=== PATIENT | male | born 1960 | race Caucasian/White ===

== ENCOUNTER → 2016-05-18 | Day surgery (SDC) | payer BC ==
[~2016-05-18] VITALS: Ht 170.1 cm; Wt 108.9 kg
[~2016-05-18] MED LIST: AMOXICILLIN,AM875 MG PO; ASPI-COR81 M1 PO; BIAXIN500 MG PO; CIPRO500 MG PO; CLOPIDOGREL75 MG PO; COMBIVENT1 ARO IH; DELTASONE5 MG PO; DUONEB 3 MG/3 ML3 ML INH; METOPROLOL SR50 MG PO; MULTI VITAMINS1 TAB PO; NEBULIZER; PRAVASTATIN SOD40 MG PO; PREDNICOT20 MG PO; Synthroid,Levo50 MCG PO; TOPROL XL100 MG PO; TOPROL XL25 MG PO; VENTOLIN H0.09 MG/AC INH; VICODIN 500 MG-1 TAB PO; VITAMIN D3 PO
--- NOTE | ~2016-05-18 | PROC NOTE ---
[place], [place] PROCEDURE NOTE NAME: KARSTEN FORD V [facility] #: [id number] UNIT #: [id number] ROOM: DOCTOR: MENDOZA VELEZ MD BIRTHDATE: [birth year] DOS: 05/18/2016 PREOPERATIVE DIAGNOSIS: Screening examination. POSTOPERATIVE DIAGNOSIS: Sigmoid diverticulosis, colonic polyps x 2, internal hemorrhoids (grade 2). PROCEDURE: Colonoscopy with polypectomy x 2. ENDOSCOPIST: Mendoza Velez M.D. NEWSPAPER PHOTOGRAPHER: MS3. ANESTHESIA: MAC. INDICATIONS: This is a 56-year-old gentleman who is here for a screening examination. The procedure and its complications were explained to the patient in detail preoperatively. Complications that were discussed included, but were not limited to bleeding, missed lesions and colon perforation. He agreed to proceed. DESCRIPTION OF PROCEDURE: After identifying the patient, the patient was brought to the endoscopy suite and placed in the left lateral position. After IV sedation was administered by the anesthesia team, a timeout procedure was called. A digital rectal exam was performed, which was within normal limits. There was no blood on the examining finger, nor there were any masses that could be palpated. An adult colonoscope was now introduced into the anal canal and advanced sequentially into the rectum, sigmoid colon, descending colon, transverse colon, and ascending colon up to the cecum. There was found to be sigmoid diverticulosis, 2 polyps in the descending colon at 40 and 50 cm respectively from the anal verge, and internal hemorrhoids. Upon reaching the cecum, the scope was withdrawn. Total withdrawal time was approximately 7 minutes. There were no other lesions that could be identified. Upon reaching the 2 polyps, they were both biopsied with the help of a biopsy forceps and a specimen was sent for histopathological diagnosis. Upon withdrawal, the scope was retroflexed in the rectum and grade 2 internal hemorrhoids without any active bleeding was visualized. The scope was withdrawn and the patient was taken to the recovery room in a stable fashion. There were no complications. Dr. Mendoza Velez, the attending endoscopist, was present throughout the operating case. Based on these findings, the patient is recommended another colonoscopy in approximately 3 years depending on the biopsy results. I also counseled his in the recovery room about diverticular diet. I will see the patient in 2 weeks and discuss these results and the need for another colonoscopy with him as an outpatient. [place], [place] PROCEDURE NOTE NAME: KARSTEN FORD V UNIT #: [id number] ROOM: DOCTOR: MENDOZA VELEZ MD BIRTHDATE: [birth year] Mendoza Velez MD CM:PROCNOTE:PROCEDURE NOTE [id number] MENDOZA VELEZ MD
[2016-05-18 07:20] VITALS: BP 135/71
[2016-05-18 08:43] VITALS: BP 168/92
[2016-05-18 08:58] VITALS: BP 150/113
[2016-05-18 09:13] VITALS: BP 136/64
[2016-05-18 09:20] VITALS: BP 141/67
== END | disposition home or self-care (01) ==
LOC: SDC 05-16 09:30
DX: Z12.11 Encounter for screening for malignant neoplasm of colon (principal); D12.5 Benign neoplasm of sigmoid colon; K63.5 Polyp of colon; K57.30 Diverticulosis of large intestine without perforation or abscess without bleeding; K64.8 Other hemorrhoids; I10 Essential (primary) hypertension; J44.9 Chronic obstructive pulmonary disease, unspecified; E78.00 Pure hypercholesterolemia, unspecified; I25.10 Atherosclerotic heart disease of native coronary artery without angina pectoris; F17.210 Nicotine dependence, cigarettes, uncomplicated; Z82.3 Family history of stroke

== ENCOUNTER → 2016-06-14 | Outpatient (CLI) | payer BC | END | disposition home or self-care (01) | LOC: RAD 13:47 | DX: M19.012 Primary osteoarthritis, left shoulder (principal) ==

== ENCOUNTER 2016-09-26 21:51 | Inpatient (IN) | payer OTHER ==
[~2016-09-26] VITALS: Ht 175.2 cm; Wt 95.6 kg
--- NOTE | ~2016-09-26 | CON ---
[place], [place] REPORT OF CONSULTATION [id number] UN[facility] #: [id number] ROOM: 424 DOCTOR: PARVIZ MILLERYONY S BIRTHDATE: [birth year] DOS: 09/28/2016 REASON FOR CONSULTATION: Acute kidney injury at the request of Dr. Pritchard. He has perhaps some mild CKD past history with a baseline creatinine in 2009 to 2013 of around 1.2 to 1.4. He has had prior acute kidney injury with a creatinine of 2.9 in February 2009. However, on this admission, he came in with a creatinine of 4.3. It is actually improving and his creatinine is down to 1.81 this morning. So far he has been given IV volume expansion. He had a past urinalysis in 2009, but nothing since then. 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 He was consulted by Dr. Pritchard to see GI for presentation of significant bloody diarrhea. He has not reported any further bloody diarrhea since having a colonoscopy done. He had a prep done and he underwent colonoscopy earlier today; there was a polypectomy performed and findings of ischemic colitis were noted. His hemoglobin when he presented was 14.3, it dropped to 11.9 today, but he has been given volume. He has not received any blood transfusion or blood products. He is not chronically anticoagulated. He takes no NSAIDs at home, does take Plavix and aspirin. No other overt nephrotoxic medications reported. Takes metoprolol for blood pressure and was on lisinopril, hydrochlorothiazide at one point as well, it is not clear if he was taking this currently. He underwent an abdominal pelvic CT, which showed no evidence of any abnormalities with the kidneys, though on enhanced images, there was bowel wall thickening consistent with the colitis mentioned in the colonoscopy report. He is feeling better right now. He continues on IV fluids. His blood pressures are well controlled, but he continuing to have diarrhea episodes and he is on a clear liquid diet without nausea or vomiting. Rest of the review of systems is negative. PAST MEDICAL HISTORY: As above as well as history of CAD, past COPD and past smoking, hypertension. FAMILY HISTORY: Negative for renal failure. SOCIAL HISTORY: He is , denies any toxic abuse. 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 He is doing a lot of sweating. PHYSICAL EXAMINATION: VITAL SIGNS: 98.0, 75, 20, 129/65, 100% on room air. GENERAL: He is awake, alert, and oriented, no acute distress, pleasant mood and affect. Speech is clear and cogent. HEENT: Extraocular muscles are intact. Sclerae are anicteric. Oropharynx is clear. Mucous membranes are moist. NECK: No JVD, no lymphadenopathy. LUNGS: Clear bilaterally without audible rales, rhonchi or wheeze. CARDIOVASCULAR: Regular rate. No audible rub. No palpable lift or heave. ABDOMEN: Soft, nontender, nondistended. No rebound, no guarding. No CVA tenderness. SKIN: Without diffuse rashes or breakdowns or nodules. EXTREMITIES: Without cyanosis, clubbing or significant edema. [place], [place] REPORT OF CONSULTATION NAME: KARSTEN FORD V UNIT #: [id number] ROOM: 424 DOCTOR: YONY JJ MD BIRTHDATE: [birth year] BACK: Without point tenderness. NEUROLOGIC: Gross motor functions and sensation is intact. LABORATORIES AND DIAGNOSTICS: White blood cell count 7.0, hemoglobin 11.9, platelets 173, normal differential. Sodium 139, potassium 4.2, chloride 110, bicarb 22, BUN 22, creatinine 1.81 down from 4.3 on admission, glucose 110, calcium is 7.6, phosphorus 2.1, albumin 3.4. CT and colonoscopy reports reviewed and mentioned above. ASSESSMENT AND PLAN: Acute kidney injury. This is likely on a baseline of chronic kidney disease stage 3 with baseline between 1.2 and 1.4, may be hypertensive in nature for chronic kidney disease. Factors contributing to acute kidney injury were likely volume depletion, hypotension from excessive sweating, possibility of gastrointestinal bleeding and diarrheal losses of volume. This is improving with IV volume expansion with LR and normal saline, continue the current rate and follow up serial laboratories. Avoid NSAIDs, ARBs, ARLET inhibitors and diuretics for now. Low dose metoprolol can be used as needed for blood pressure control. Electrolytes are acceptable, mild calcium and phosphorus being low. We will check his vitamin D levels, perhaps replace as necessary and replace phosphorus as needed. In regards to his anemia, defer to primary and GI. I will screen with a urinalysis for him to rule out any intrinsic renal diseases with hematuria or proteinuria, though with renal function improving, this seems less likely. Thank you very much for the kind consultation. We will continue to follow with you. YONY JJ MD CM:CONSTR:REPORT OF CONSULTATION 1532 09/29/16 0229 interface
--- NOTE | ~2016-09-26 | WRIGHTHP ---
[place], [place] PATIENT HISTORY AND PHYSICAL EXAM NAME: KARSTEN FORD V [facility] #: [id number] UNIT #: [id number] ROOM: 424 DOCTOR: PAMELA PLATT MD BIRTHDATE: [birth year] DOS: 09/27/2016 HISTORY OF PRESENT ILLNESS: 1. The patient is a 56-year-old gentleman with a past medical history of diverticulosis of the colon with polypectomy in 2017. 2. History of coronary artery disease. 3. History of chronic obstructive pulmonary disease and continued nicotine smoke dependence, 1 pack of cigarettes a day. 4. Benign essential hypertension. The patient presented to the Emergency Department after he had a blood containing diarrhea yesterday. The patient had started having recurrent bowel moments with little fresh blood in the stool. After initial evaluation in the Emergency Department, the patient was recommended for admission and further management. The patient's hemoglobin was normal at 14.3. After admission, the patient is still having recurrent bowel movements with little blood in it every time. No significant abdominal pain. No nausea, vomiting, diarrhea, constipation, chest pains or shortness of breath. REVIEW OF SYSTEMS: LUNGS: No increasing shortness of breath or wheezing. GASTROINTESTINAL: Noticed some diarrhea and bloody bowel movement since yesterday. CARDIOVASCULAR: No chest pains or palpitations. ALLERGIES: No known drug allergies. FAMILY HISTORY: Noncontributory. SOCIAL HISTORY: , smokes 1 pack of cigarettes a day. Denies any alcohol or drug abuse. MEDICATIONS: Simvastatin, metoprolol, levothyroxine, Plavix, aspirin, metronidazole and MiraLax. PHYSICAL EXAMINATION: GENERAL APPEARANCE: Alert and oriented x 3. HEENT AND NECK: Extraocular movements are intact. Sclerae are anicteric. Oral mucosa is moist and clean. No obvious facial weakness. Neck is supple without any lymphadenopathy. No thyromegaly. No JVD. No carotid arterial bruits. LUNGS: Clear to auscultation. No wheezing. No rhonchi. CARDIOVASCULAR SYSTEM: Heart rate is regular in rate and rhythm. S1 and S2 normally audible. No significant murmur or any other abnormal cardiac sounds. ABDOMEN: Soft, nontender. No obvious organomegaly. Bowel sounds are present. No obvious herniation. EXTREMITIES: Without significant cyanosis or edema. Warm to touch. CENTRAL NERVOUS SYSTEM: Alert and oriented x 3. Cranial nerves II-XII are intact. Speech is normal. The patient is able to move all extremities. Normal muscle strength. Deep tendon reflexes are equal on both sides. Plantars were downgoing. [place], [place] PATIENT HISTORY AND PHYSICAL EXAM [facility]: [id number] UNIT #: [id number] ROOM: 424 DOCTOR: PAMELA PLATT MD BIRTHDATE: [birth year] IMPRESSION AND PLAN: 1. The patient has acute lower GI bleed with some diarrhea going for a colonoscopy tomorrow. The patient already has history of diverticulosis and polypectomy earlier this year. 2. Acute kidney failure with BUN and creatinine of 44 and 4.3 and incidental finding is improving with hydration with normal saline. The patient's CT scan of the abdomen and pelvis. 3. Coronary artery disease of [place] vessels without chest pains. 4. Mixed hyperlipidemia treated, treated controlled with simvastatin. 5. Benign essential hypertension being treated blood pressure is being monitored. The patient on metoprolol. 6. Leukocytosis from uncertain etiology. The patient on Flagyl. I will follow blood counts, white count and hemoglobin. 7. Nicotine smoke dependence. The patient encouraged to stop smoking cigarettes. He smokes 1 pack of cigarettes a day and he has been started on nicotine patch. 8. Hypothyroidism, treated with levothyroxine. PAMELA PLATT MD CM:HISPHYS:PATIENT HISTORY AND PHYSICAL EXAMINATION 19 23 PAMELA PLATT MD 09/27/161923 interface
--- NOTE | ~2016-09-26 | PR ---
[place], [place] PROGRESS NOTE [id number] #: [id number] ROOM: 424 DOCTOR: ANTONY URBANO MD BIRTHDATE: [birth year] DOS: SUBJECTIVE: The patient is doing fine without any complaint. Denies any chest pains, palpitations. He did undergo the colonoscopy yesterday. OBJECTIVE: VITAL SIGNS: Graphic trend shows a pressure 140/77, pulse is 73, respirations 20, temperature 98.1. LUNGS: Diminished breath sounds. No wheezes, rales or rhonchi heard. HEART: Regular. ABDOMEN: Obese, soft, nontender. EXTREMITIES: Without any edema. LABORATORY DATA: Stool cultures were negative. Colonoscopy showed ischemic colitis. Ultrasound of the kidneys showed no evidence of hydronephrosis. ASSESSMENT AND PLAN: 1. Ischemic colitis. Discussed with the patient and , advised smoking cessation. The patient has been on Plavix and aspirin, but is on hold because of the recent biopsy and continued bleed. This can be restarted at a later date. 2. Acute kidney injury, possibly from ATN, this has resolved on IV fluids. 3. Benign hypertension, controlled. 4. History of coronary artery disease, status post stent placement. Dr. Alvarez did agree on discontinuing Plavix. ANTONY URBANO MD CM:PNTRANS [id number] ANTONY URBANO MD 09/29/16 1040 interface
--- NOTE | ~2016-09-26 | PR ---
[place], [place] PROGRESS NOTE NAME: [id number] UNIT #: [id number] ROOM: 424 DOCTOR: ANTONY URBANO MD BIRTHDATE: [birth year] DOS: 09/28/2016 SUBJECTIVE: The patient states that he has had no bleeding since yesterday afternoon. He is getting prepped for a colonoscopy. OBJECTIVE: VITAL SIGNS: Graphic trend shows a pressure 136/75, pulse is 77, respirations 20, temperature 98.4. LUNGS: Diminished breath sounds. No wheezes, rales or rhonchi heard. HEART: Regular. ABDOMEN: Obese. EXTREMITIES: Without any edema. ASSESSMENT AND PLAN: 1. Gastrointestinal bleed with evidence of colitis on a CT of the abdomen and pelvis. He is on metronidazole IV. Awaiting a colonoscopy today. Stool cultures have come back negative. 2. Acute kidney injury. Renal ultrasound will be ordered. Consultation with Nephrology is also obtained. The patient's kidney function seems to be improving with IV fluids. He claims that he is not taking any nonsteroidals and also he is not on any nephrotoxic meds. So we will get an opinion from Nephrology. 3. Coronary artery disease with history of stent placement. The last one was 2 years ago as per the patient on Plavix and aspirin, which is on continued right now. I will ask Dr. Alvarez for an opinion as regards to continuation of the medication. ANTONY URBANO MD CM:PNTRANS 2 4 ANTONY URBANO MD 09/28/1655 interface
--- NOTE | ~2016-09-26 | O ---
[place], [place] OPERATIVE NOTE NAME: KARSTEN FORD V [facility] #: [id number] UNIT #: [id number] ROOM: 424 DOCTOR: IVET MILLER,CATE BIRTHDATE: [birth year] DOS: 09/28/2016 GASTROENDOSCOPIC REPORT INDICATIONS: This gentleman is a 56-year-old who has presented with chief complaint of abdominal pain, blood in the stool, and the patient with a history of alcohol consumption to the point to become drunk as well as smoker of a pack of cigarettes at least per day. FAMILY HISTORY: Noncontributory. ALLERGIES: Allergies to no known medication. PAST MEDICAL HISTORY: Coronary artery disease, status post multi stents. Also associated hyperlipidemia and hypertension. MEDICATIONS: Clopidogrel in addition to aspirin. PROCEDURE: Today's procedure part of investigation is colonoscopy plus biopsy. PREMEDICATION: Versed and Diprivan. SCOPE: Olympus folding colonoscope 10L video. REPORT: After putting the patient in the left lateral position and after application of lubricant to rectal pouch and digital examination, the scope was introduced. Thereafter, under direct visualization, I advanced through the length of colon without difficulty. Starting at the rectosigmoid junction, evidence of ischemic colitis was expressed all the way to the left side of the colon, descending colon. At about hepatic flexure, polypoid lesion was snare polypectomized and removed. Base of the cecum explored, appendiceal orifice identified, and ileocecal valve was defined. The scope was withdrawn. Around the sigmoid colon, mild diverticulosis as well was identified. The patient was extubated, tolerated the procedure well. IMPRESSION: 1. Ischemic colitis involving the sigmoid and descending colon. 2. Diverticulosis of mild degree of sigmoid colon. 3. Polypoid lesion, status post snare polypectomy ____ flexure. PLAN AND DISCUSSION: Flagyl 500 mg every 8 hours while he is inpatient and summing up with 1 week of Flagyl therapy entirely. If he is discharged as outpatient to continue with Flagyl 500 mg t.i.d. to sum up about 1 week of antibiotic therapy. The patient was advised specifically to abstain from smoking to remove the contribution to further ischemia. On clear liquid while he is inpatient. Advised to avoid excessive alcohol consumption and follow up as outpatient. This patient cannot be started on clopidogrel for the next 3 days at least as well as aspirin to be withheld because of polypectomy and ischemic colon and raw surface secondary to colitis and possibility of rebleed. [place], [place] OPERATIVE NOTE NAME: KARSTEN FORD V UNIT #: [id number] ROOM: [facility] DOCTOR: IVET MILLER,CATE BIRTHDATE: [birth year] Thank you very much. CATE COONEY MD CM:OPRECORD:OPERATIVE NOTE [id number] CATE COONEY MD 09/28/16 1338 interface
--- NOTE | ~2016-09-26 | DS ---
[place], [place] DISCHARGE SUMMARY NAME: [facility] [id number] UNIT #: [id number] ROOM: 424 DOCTOR: ANTONY URBANO MD BIRTHDATE: [birth year] DOS: HOSPITAL COURSE: The patient is 56 years old, was admitted to Dr. Fox's services. Please refer to H and P for further details. The patient comes in with complaints of GI bleed. After admission, the patient was placed on IV fluids. Consultation with Dr. Gay was obtained. The patient was started on vigorous IV hydration because of acute kidney injury, possibly from ATN from hypotension. With IV fluids, her kidney functions have improved and have stabilized. Last kidney functions we have, his creatinine is 1.81 on 09/28 and this needs to be repeated as an outpatient. Ultrasound of the kidneys showed no evidence of obstruction. Dr. Phillips did see the patient for an opinion. He does have underlying coronary artery disease and has been on Plavix and aspirin. These were discontinued because of the procedure and the bleeding. Dr. Alvarez has seen the patient and agreed to hold the medications. Dr. Gay took the patient for colonoscopy, was found to have ischemic colitis. The patient was placed on Flagyl and advised smoking cessation. The Plavix and aspirin can be started at a later date. H and H has not drawn significant drop. Stool cultures were negative. The patient is stable. We will discharge the patient to home. He was advised off from work, given slip for a couple of days. A polyp was also removed during the colonoscopy. We did not have the pathology report yet. The patient to follow with Dr. Rene for further lab orders, which will be a basic metabolic panel to make sure the kidney functions have normalized. DISCHARGE MEDICATIONS: Metronidazole 500 mg 3 times a day, pravastatin 40 daily, multivitamin 1 tablet daily, metoprolol 100 b.i.d., levothyroxine 50 mcg daily, vitamin D3 2000 units daily, aspirin and Plavix on hold. ANTONY URBANO MD CM:DISCHARG [id number] ANTONY URBANO MD 10/01/16 0730 interface
--- NOTE | ~2016-09-26 | CON ---
[place], [place] REPORT OF CONSULTATION [id number] #: [id number] ROOM: 424 DOCTOR: NICOL VALDES MD BIRTHDATE: [birth year] DOS: 09/28/2016 HISTORY OF PRESENT ILLNESS: This is a 56-year-old -[place] male with a history of coronary artery disease. He had coronary stents deployed in 2007, I believe, and a couple of years ago, deployed a stent; details are not available. He has never had heart failure, stroke or cancer. He does have COPD and continues to smoke about 1 pack of cigarettes per day. There is no family history of premature coronary artery disease. He has no drug allergies. He had been at work and had a bowel movement and came back home and had another bowel movement which was dark red in color and this repeated several times and he came to the Emergency Department. He had a colonoscopy done today and it demonstrated ischemic bowel and a polyp. He did not have any chest pain, palpitation, no shortness of breath. He works quite hard without much symptoms. No orthopnea or swelling of the lower extremities. He did not have any obvious irregularity of the heart that he could feel. HOME MEDICATIONS: Include aspirin 81, clopidogrel 75 mg daily, levothyroxine 50 mcg daily, metoprolol succinate 100 mg b.i.d., pravastatin 40 daily, and multivitamins. PHYSICAL EXAMINATION: GENERAL: This is a patient who is pleasant, alert, oriented. He is moderately obese. His voice is a little raspy. VITAL SIGNS: Pulse is 72 and regular, blood pressure 140/75. NECK: JVP is normal. No bruit in the neck. CARDIAC: Auscultation reveals no murmurs. There is no edema in the lower extremities. Pedal pulses are excellent. RESPIRATORY: He is not tachypneic. Percussion note is normal. Auscultation reveals moderately reduced breath sounds bilaterally with rhonchi and crackles. Monitor shows normal sinus rhythm and no dysrhythmia has been detected so far. IMPRESSION: 1. This patient has coronary artery disease and had stents deployed over 2 years ago. 2. Acute gastrointestinal bleeding is said to be from ischemic bowel. RECOMMENDATIONS: It is safe to hold Plavix and aspirin as needed, and Plavix need not be restarted; however, eventually 80 mg of aspirin should be restarted. I thank you for this consult. [place], [place] REPORT OF CONSULTATION NAME: KARSTEN FORD V UNIT #: [id number] [facility] DOCTOR: NICOL VALDES MD BIRTHDATE: [birth year] NICOL VALDES MD CM:CONSTR:REPORT OF CONSULTATION 1744 09/29/16 0254 interface
[2016-09-26 22:03] VITALS: BP 158/90
[2016-09-26 22:22] LABS: BASO # 0.1 10*3/uL (0.0-0.1); BASO % 0.3 % (0.0-1.0); EOS # 0.1 10*3/uL (0.0-0.4); EOS % 0.4 % (1.0-4.0); HEMATOCRIT 41.2 % (42.0-52.0); HEMOGLOBIN 14.3 g/dl (14.0-18.0); IG # 0.1 10*3/uL (0.0-0.1); LYMPH # 2.4 10*3/uL (1.3-4.4); LYMPH % 15.5 % (27.0-41.0); MEAN CELL VOLUME 87.8 fl (80.0-94.0); MEAN CORPUSCULAR HGB 30.5 pg (27.0-31.0); MEAN CORPUSCULAR HGB CONC 34.7 g/dl (33.0-37.0); MEAN PLATELET VOLUME 10.5 fl (9.6-12.3); MONO # 1.3 10*3/uL (0.1-1.0); MONO % 8.6 % (3.0-9.0); NEUT # 11.5 10*3/uL (2.3-7.9); NEUT % 74.7 % (47.0-73.0); PLATELET COUNT AUTOMATED 222 10*3/uL (130-400); RED BLOOD COUNT 4.69 10*6/uL (4.50-5.90); RED CELL DISTRI WIDTH 12.6 % (0-14.5); WHITE BLOOD COUNT 15.3 10*3/uL (4.8-10.8)
[2016-09-26 22:36] LABS: ALBUMIN 4.3 gm/dl (3.1-4.5); BILIRUBIN, TOTAL 0.6 mg/dl (0.2-1.0); POTASSIUM 4.3 mmol/L (3.5-5.1); TOTAL PROTEIN 7.6 gm/dL (6.4-8.2)
[2016-09-26 23:25] VITALS: BP 118/52
[2016-09-27] VITALS: BP 135/76
[2016-09-27 00:20] VITALS: BP 135/76
[2016-09-27 08:00] VITALS: BP 90/48
[2016-09-27 12:00] VITALS: BP 101/54
[2016-09-27 16:00] VITALS: BP 113/61
[2016-09-28] VITALS (8 sets, daily range): BP systolic 125–150; BP diastolic 64–106
[2016-09-28 07:05] LABS: BASO % 0.3 % (0.0-1.0); EOS # 0.2 10*3/uL (0.0-0.4); EOS % 2.9 % (1.0-4.0); LYMPH # 1.6 10*3/uL (1.3-4.4); LYMPH % 23.5 % (27.0-41.0); MEAN CELL VOLUME 89.2 fl (80.0-94.0); MEAN CORPUSCULAR HGB 30.5 pg (27.0-31.0); MEAN CORPUSCULAR HGB CONC 34.2 g/dl (33.0-37.0); MEAN PLATELET VOLUME 10.6 fl (9.6-12.3); MONO # 0.6 10*3/uL (0.1-1.0); NEUT # 4.6 10*3/uL (2.3-7.9); NEUT % 65.2 % (47.0-73.0); PLATELET COUNT AUTOMATED 173 10*3/uL (130-400); RED CELL DISTRI WIDTH 12.5 % (0-14.5)
[2016-09-28 07:06] LABS: HEMATOCRIT 34.8 % (42.0-52.0); HEMOGLOBIN 11.9 g/dl (14.0-18.0)
[2016-09-28 07:38] LABS: ALBUMIN 3.4 gm/dl (3.1-4.5); PHOSPHOROUS 2.1 mg/dL (2.5-4.9); POTASSIUM 4.2 mmol/L (3.5-5.1)
[2016-09-28 16:25] LABS: BILIRUBIN NEGATIVE (NEGATIVE); BLOOD NEGATIVE (NEGATIVE); CLARITY CLEAR (CLEAR); COLOR YELLOW (YELLOW); GLUCOSE TRACE (NEGATIVE); KETONE NEGATIVE (NEGATIVE); LEUKO ESTERASE NEGATIVE (NEGATIVE); NITRITE NEGATIVE (NEGATIVE); PH 5.5 (5.0-9.0); PROTEIN NEGATIVE (NEGATIVE); SPECIFIC GRAVITY <= 1.005 (1.005-1.030); UROBILINOGEN 0.2 E.U./dl (0.2-1.0)
[2016-09-28 16:39] LABS: BACTERIA TRACE
[2016-09-28 16:40] LABS: EPITHELIAL CELLS 0-2; RBC 0-2 rbc/hpf (0-2); URINE REFLEX COMMENT NO (NO); WBC 0-2 wbc/hpf (0-5)
[2016-09-29] VITALS: BP 140/77
[2016-09-29 06:15] LABS: BASO % 0.3 % (0.0-1.0); EOS # 0.3 10*3/uL (0.0-0.4); EOS % 4.6 % (1.0-4.0); HEMATOCRIT 34.7 % (42.0-52.0); HEMOGLOBIN 11.6 g/dl (14.0-18.0); LYMPH # 1.8 10*3/uL (1.3-4.4); MEAN CELL VOLUME 89.7 fl (80.0-94.0); MEAN CORPUSCULAR HGB CONC 33.4 g/dl (33.0-37.0); MEAN PLATELET VOLUME 10.7 fl (9.6-12.3); MONO # 0.6 10*3/uL (0.1-1.0); MONO % 9.2 % (3.0-9.0); NEUT # 3.8 10*3/uL (2.3-7.9); NEUT % 58.7 % (47.0-73.0); PLATELET COUNT AUTOMATED 174 10*3/uL (130-400); RED BLOOD COUNT 3.87 10*6/uL (4.50-5.90); RED CELL DISTRI WIDTH 12.6 % (0-14.5); WHITE BLOOD COUNT 6.5 10*3/uL (4.8-10.8)
[2016-09-29] MEDS ORDERED: METRONIDAZOLE500 M1 PO (06:50)
[2016-09-29 07:43] LABS: ALBUMIN 3.4 gm/dl (3.1-4.5); BUN 11 mg/dl (7-24); CARBON DIOXIDE 21 mmol/L (21-32); CHLORIDE 114 mmol/L (98-107); EST GLOM FILT AFRICAN AMERICAN > 60 ml/min; GLUCOSE 101 mg/dL (65-99); MAGNESIUM 1.7 mg/dL (1.5-2.1); PHOSPHOROUS 1.2 mg/dL (2.5-4.9); SODIUM 142 mmol/L (136-145)
[2016-09-29 08:04] LABS: PTH INTACT 114.1 pg/mL (14.0-72.0); VITAMIN D, 25-HYDROXY 43.8 ng/mL (30-100)
== END 2016-09-29 08:12 | disposition home or self-care (01) | DRG 393 ==
LOC: ED 21:51 → 4E 23:48 → EDHOLD 23:48 → 4E 23:55
PROVIDERS: Internal Medicine; Internal Medicine Nephrology; Physician Assistant; Student in an Organized Health Care Education/Training Program
PROC: 0DBL8ZZ Excision of Transverse Colon, Via Natural or Artificial Opening Endoscopic (ICD-10-PCS; principal; 2016-09-28)
DX: K55.9 Vascular disorder of intestine, unspecified (principal); N17.0 Acute kidney failure with tubular necrosis; K92.1 Melena; I25.10 Atherosclerotic heart disease of native coronary artery without angina pectoris; Z71.6 Tobacco abuse counseling; J44.9 Chronic obstructive pulmonary disease, unspecified; F17.210 Nicotine dependence, cigarettes, uncomplicated; I10 Essential (primary) hypertension; Z79.82 Long term (current) use of aspirin; Z79.899 Other long term (current) drug therapy; E78.2 Mixed hyperlipidemia; E03.9 Hypothyroidism, unspecified; Z95.818 Presence of other cardiac implants and grafts; Z82.3 Family history of stroke; K57.30 Diverticulosis of large intestine without perforation or abscess without bleeding; K63.5 Polyp of colon

== ENCOUNTER 2016-12-18 16:51 | Emergency (ER) | payer OTHER ==
[~2016-12-18] VITALS: Ht 177.8 cm; Wt 96.0 kg
[~2016-12-18 16:51] MED LIST changes: +METRONIDAZOLE500 M1 PO
[2016-12-18 17:18] LABS: HEMATOCRIT 44.4 % (42.0-52.0); HEMOGLOBIN 15.2 g/dl (14.0-18.0); MEAN CELL VOLUME 87.4 fl (80.0-94.0); MEAN CORPUSCULAR HGB 29.9 pg (27.0-31.0); MEAN CORPUSCULAR HGB CONC 34.2 g/dl (33.0-37.0); PLATELET COUNT AUTOMATED 227 10*3/uL (130-400); RED BLOOD COUNT 5.08 10*6/uL (4.50-5.90); RED CELL DISTRI WIDTH 12.4 % (0-14.5); WHITE BLOOD COUNT 16.1 10*3/uL (4.8-10.8)
[2016-12-18 17:29] LABS: ACT PARTIAL THROMBO TIME 22.4 SECONDS (20.8-31.5); INTERNATIONAL NORM RATIO 0.9 (2.0-3.5)
[2016-12-18 17:35] LABS: ALBUMIN 3.7 gm/dl (3.1-4.5); CREATININE 1.84 mg/dL (0.70-1.30); POTASSIUM 3.9 mmol/L (3.5-5.1); TOTAL PROTEIN 7.8 gm/dL (6.4-8.2)
[2016-12-18 17:41] LABS: TROPONIN I 0.398 ng/ml (<0.045)
[2016-12-18 17:43] LABS: BASOPHILS 1 % (0-1); PLATELET SUFFICIENCY NORMAL (NORMAL); TOTAL CELLS COUNTED 100 #CELLS
== END 2016-12-18 18:46 | disposition expired ==
LOC: ED 16:51
PROVIDERS: Student in an Organized Health Care Education/Training Program
DX: I46.9 Cardiac arrest, cause unspecified (principal); I21.3 ST elevation (STEMI) myocardial infarction of unspecified site; I47.2 Ventricular tachycardia; I25.10 Atherosclerotic heart disease of native coronary artery without angina pectoris; J44.9 Chronic obstructive pulmonary disease, unspecified; F17.200 Nicotine dependence, unspecified, uncomplicated; Z95.5 Presence of coronary angioplasty implant and graft; Z79.899 Other long term (current) drug therapy